=== PATIENT | male | born 1950 | race Caucasian/White ===

== ENCOUNTER → 2024-06-07 13:01 | Outpatient (REF) | payer OTHER, SELFPAY | LOC: RAD 13:01 | PROVIDERS: ATTENDING PHYSICIAN Family Medicine | DX: M25.512 Pain in left shoulder (principal) | CPT/HCPCS: 73030 ==

== ENCOUNTER → 2024-10-08 07:10 | Outpatient (REF) | payer OTHER, SELFPAY | LOC: MRI 07:10 | PROVIDERS: ATTENDING PHYSICIAN Orthopaedic Surgery; FAMILY PHYSICIAN Family Medicine | DX: M75.122 Complete rotator cuff tear or rupture of left shoulder, not specified as traumatic (principal) | CPT/HCPCS: 73221 ==

== ENCOUNTER 2024-11-09 23:03 | Emergency (ER) | payer OTHER, SELFPAY ==
[2024-11-09 23:05] VITALS: BP 132/77
[2024-11-09 23:06] VITALS: BP 132/77; BMI 29.3
--- NOTE | 2024-11-09 23:32 | ED.GENMED ---
History of Present Illness
General
Chief Complaint: Musculo-Skeletal Complaint
Source: patient
Time Seen by Provider: 11/09/24 23:13
History of Present Illness
History of Present Illness:
74-year-old male presents emergency department with complaints of neck pain that started on Tuesday. It was gradual in onset, and describes it as coming and going. It is particularly worse when he moves his neck 1 where the other particularly on
the right side. The neck is posterior, and not associated with vertigo, dizziness, numbness, tingling, focal weakness, visual changes, change in speech, headache, chest pain, dyspnea, back pain. He has been using Tylenol with minimal relief of
symptoms. About an hour prior to presentation patient then developed vomiting and nonbloody diarrhea associated with diaphoresis, and medics were called. He is not nauseous at this current time. Patient denies any specific trauma such as
chiropractor, roller coaster, loss of consciousness/significant head injury, significant neck injury, etc. Sometime during this week while on a ladder he said that a fan blade struck the posterior aspect of his head. This did not cause him to fall
off the ladder, and he denies any associated injury.
Past History
Past History
ED Past Medical History: HTN, Hypercholesterolemia and Other
Social History
Tobacco: Non-smoker
Alcohol: None
Drug: None
Living: alone
Phy Exam
Physical Exam
Physical Exam:
GENERAL: Alert , in no apparent distress
EYE: pupils equal and reactive, no nystagmus, EOMI, no photophobia
NECK: No tenderness to palpation of the midline, trachea midline, no bruising or swelling noted, no bruits, no significant adenopathy. Patient has obvious discomfort with movement of neck, mild discomfort with palpation along the right lateral
margin of the posterior neck without associated fluctuance, soft tissue abnormalities, etc.
ENT: o/p clr, mmm.
CARDIAC: Regular rate and rhythm .
LUNGS: Clear breath sounds bilaterally, no acute respiratory distress, no wheezes/rales/rhonchi
ABDOMEN: Soft, without focal tenderness, no r/g, no cvat
NEUROLOGICAL: Alert and oriented, no focal neuro deficits
SKIN: Warm and dry, skin intact.
MUSCULOSKELETAL: No edema, well perfused.
PSYCH: Normal and appropriate interaction.
Course
Orders/Labs/Results
Orders:
Orders
11/09/24 23:41
Amiodarone [Cordarone] 150 mg Dextrose 5%/Water 100 ml [D5w] 100 ml IV NOW
diazePAM [Valium Injection] 5 mg IV NOW STA
11/09/24 23:46
Electrocardiogram (*1) Stat
Reason for Study: Other
Other Reason for Exam: chest pain
Cardiac Monitoring- Treatment ONCE
EKG- Treatment ONCE
11/09/24 23:49
Complete Blood Count/No Diff Urgent
Comprehensive Metabolic Panel Urgent
Troponin I Urgent
11/10/24 00:33
Ketorolac [Toradol] 15 mg IV NOW STA
11/10/24 01:45
Dexamethasone Sod Phosphate [Decadron] 10 mg IV NOW STA
Morphine Sulfate 4 mg IV NOW STA
Abnormal Lab Results
11/09/24
23:49
WBC 11.9 H 10^3/uL
(4.8-10.8)
RBC 3.97 L 10^6/uL
(4.70-6.10)
Hgb 11.6 L g/dL
(13.0-18.0)
Hct 35.0 L %
(39.0-52.0)
Chloride 97 L mmol/L
(98-107)
BUN 29 H mg/dl
(9-20)
Glucose 193 H mg/dl
(70-99)
11/09/24 23:49
11/09/24 23:49
Vital Signs
Initial and Last Documented VS:
Initial Vital Signs
BP
132/77
11/09/24 23:05
Last Documented Vital Signs
Temp Pulse Resp BP Pulse Ox
98.8 F 85 20 118/68 96
11/09/24 23:06 11/10/24 03:00 11/10/24 03:00 11/10/24 03:00 11/10/24 02:00
*Critical Care Note
Total Time (30-74mins, 75-104mins- exclusive of procedures): Not Applicable
Update Note
Update Note:
Patient presents to the Emergency Department with __neck pain
Number and Complexity of Problems Addressed at the Encounter
� Chronic conditions affecting care:
� Acute Exacerbation and/or Progression of Chronic Illness:
� Differential Diagnosis includes: But not limited to muscular strain, disc herniation, etc. etc.
Amount and/or Complexity of Data to be Reviewed and Analyzed
� I performed an independent evaluation of and my interpretation is:
EKG: Read by me, normal sinus rhythm, normal rate, normal axis, no acute ischemia
CT:
Xrays:
Laboratory Studies: Mild leukocytosis, nonspecific, mild anemia
Other:
� Review of other/old records reveals:
� Clinical information was obtained by an independent historian:
� Prescriptions/Medications Considered but not given:
� Further testing considered but not performed:
Risk of Complications and/or Morbidity or Mortality of Patient Management
� Social determinants of health affecting care:
� Discussion with other providers (PCP, Hospitalists, Consultants, etc):
� Escalation of care including admission/observation vs risk of discharge considered:1234am girlfriend now at bedside, confirms pain for 4 days, worse with movement, no neuro sxs. Pt feels better but not fully pain free. Will
give toradol and continue to monitor.
3:11 AM multiple reassessments patient is smiling feels significantly better, able to move neck with much greater ease. Would like to go home. Strongly cyst musculoskeletal etiology, doubt infectious, vascular, etc. given reassuring exam and
history and response to meds here. Discussed with him and girlfriend importance of follow-up and reasons return to the ER
ED Attending Note
-
Portions of this chart may have been created with voice recognition software.� Occasional wrong word or��sound alike� substitutions may have occurred due to the inherent limitations of voice recognition software.
Discharge Plan
Departure
Patient Disposition: Home (Routine Discharge)
Date of Disposition: 11/10/24
Time of Disposition: 03:08
Patient with high blood pressure during this ER visit?: Yes
Condition: Good
Discharge Problem:
Neck strain
Instructions: Neck pain, BLOOD PRESSURE
Prescriptions:
New
methylprednisolone [Medrol (Evin)] 4 mg tablets,dose pack
See Rx Instructions .ROUTE .COMPLEX Qty: 21 0RF
Rx Instructions:
for 6 days
oxycodone-acetaminophen [Percocet] 5-325 mg tablet
1 tab PO Q4HPRN PRN (Reason: pain) Qty: 13 0RF
No Action
aspirin [Aspir-81] 81 mg Tablet,Delayed Release (Dr/Ec)
81 mg PO DAILY
simvastatin 40 mg Tablet
40 mg PO DAILY
amlodipine 10 mg Tablet
10 mg PO DAILY
hydrochlorothiazide 25 mg Tablet
25 mg PO DAILY
losartan 100 mg Tablet
100 mg PO DAILY
metformin 750 mg Tablet Extended Release 24 Hr
750 mg PO BID
Referrals:
Zaynab Shoemaker DO [Family Provider] - Follow up in 2-3 days
Activity Restrictions/Additional Instructions:
IF YOU DEVELOP INCREASING NEW OR WORSENING PAIN, NUMBNESS, SWELLING, TROUBLE SWALLOWING, SEVERE HEADACHE, WEAKNESS, CHEST PAIN, SHORTNESS OF BREATH, OR OTHER WORRISOME SIGNS, PLEASE RETURN TO THE ER IMMEDIATELY.
Interventions
Interventions:
*Risk Screen - Suicide Last Done: 11/09/24 23:06
*General Assessment Last Done: 11/09/24 23:06
*Neglect/Abuse Screening Last Done: 11/09/24 23:06
*ED COVID-19 Vaccine History Last Done: 11/10/24 01:55
ED-Musculoskeletal Assessment Last Done: 11/10/24 02:18
Discharge Date and Time
Print Language: EQUATORIAL GUINEAN
[2024-11-09] MEDS: VALIUM INJECTION 5 MG IV (23:45)
[2024-11-10] VITALS: BP 111/59
[2024-11-10 00:08] LABS: Hemoglobin 11.6 g/dL (13.0-18.0); Mean Corp Hgb Conc. 33.1 g/dL (33.0-37.0); Mean Corpuscular Hgb 29.2 pg (27.0-31.0); Mean Corpuscular Volume 88.2 fL (80.0-94.0); Mean Platelet Volume 9.5 fL (7.4-10.4); Platelet Count 290 10^3/uL (130-400); Red Blood Cell Count 3.97 10^6/uL (4.70-6.10); Red Cell Dist. Width 12.7 % (11.5-14.5); White Blood Cell Count 11.9 10^3/uL (4.8-10.8)
[2024-11-10 00:24] LABS: ALT (SGPT) 15 U/L (0-50); AST (SGOT) 19 U/L (17-59); Albumin 4.1 g/dl (3.5-5.0); Alkaline Phosphatase 81 U/L (38-126); Blood Urea Nitrogen 29 mg/dl (9-20); Carbon Dioxide 29 mmol/L (22-30); Chloride 97 mmol/L (98-107); Estimated Creatinine Clearance 54 ml/min; Glucose 193 mg/dl (70-99); Potassium 4.4 mmol/L (3.5-5.1); Sodium 135 mmol/L (135-145); Total Bilirubin 0.5 mg/dl (0.2-1.3); Total Protein 6.8 g/dl (6.3-8.2); eGFR > 60.00
[2024-11-10 00:26] LABS: Troponin I < 0.012 ng/ml
[2024-11-10] MEDS: TORADOL 15 MG IV (00:37)
[2024-11-10 01:00] VITALS: BP 107/59
[2024-11-10] MEDS: DECADRON 10 MG IV (01:56)
[2024-11-10 02:00] VITALS: BP 136/72
[2024-11-10] MEDS: MORPHINE SULFATE 4 MG IV (02:01)
[2024-11-10 03:00] VITALS: BP 118/68
[2024-11-10 03:53] VITALS: BP 118/64
== END 2024-11-10 04:07 | disposition home or self-care (01) ==
LOC: EMR 23:03
PROVIDERS: EMERGENCY PHYSICIAN Emergency Medicine; FAMILY PHYSICIAN Family Medicine
DX: S16.1XXA Strain of muscle, fascia and tendon at neck level, initial encounter (principal); W20.8XXA Other cause of strike by thrown, projected or falling object, initial encounter; I10 Essential (primary) hypertension
CPT/HCPCS: 99284; 96374; 96375 ×3; 80053; 84484; 85027; 93005

== ENCOUNTER → 2025-07-11 14:39 | Outpatient (REF) | payer OTHER, SELFPAY | LOC: HWRCS 14:39 | PROVIDERS: ATTENDING PHYSICIAN Physician Assistant Medical; FAMILY PHYSICIAN Family Medicine | DX: R42 Dizziness and giddiness (principal); R06.02 Shortness of breath; I35.0 Nonrheumatic aortic (valve) stenosis | CPT/HCPCS: 93306 ==

== ENCOUNTER → 2025-08-21 07:59 | Outpatient (REF) | payer OTHER, SELFPAY | LOC: HWRCS 07:59 | PROVIDERS: ATTENDING PHYSICIAN Internal Medicine Cardiovascular Disease; FAMILY PHYSICIAN Family Medicine | DX: R06.02 Shortness of breath (principal) | CPT/HCPCS: 78452; 93017; A9500 ==

== ENCOUNTER → 2025-09-30 15:15 | Outpatient (REF) | payer OTHER, SELFPAY | LOC: HWRAD 15:15 | PROVIDERS: ATTENDING PHYSICIAN Family Medicine | DX: R05.3 Chronic cough (principal) | CPT/HCPCS: 71046 ==

== ENCOUNTER → 2025-11-20 10:58 | Outpatient (REF) | payer OTHER, SELFPAY | LOC: HWRAD 10:58 | PROVIDERS: ATTENDING PHYSICIAN Family Medicine | DX: R05.3 Chronic cough (principal); R63.4 Abnormal weight loss; Z71.89 Other specified counseling; G52.2 Disorders of vagus nerve | CPT/HCPCS: 71250; 74176 ==